=== PATIENT | female | born 1990 | race Caucasian/White ===

== ENCOUNTER 2018-12-07 22:23 | Emergency (ER) | payer SELFPAY ==
[2018-12-07] MEDS ORDERED: TAMIFLU 75MG75 MG PO (22:42)
[2018-12-07 23:35] VITALS: BP 112/69; PULSE 107; TEMP 101.5
== END 2018-12-07 23:53 | disposition home or self-care (01) ==
LOC: COL.ER 22:23
DX: J10.1 Influenza due to other identified influenza virus with other respiratory manifestations (principal)
CPT/HCPCS: J1885